=== PATIENT | female | born 1985 | race American Indian/Alaskan Native ===

== ENCOUNTER 2017-08-31 22:59 | Emergency (ER) | payer MEDICAID ==
[2017-08-31 23:11] VITALS: BP 193/92
--- NOTE | 2017-09-01 00:01 | EDM.PDOC ---
ED HPI GENERAL MEDICAL PROBLEM - General Chief Complaint: Gastrointestinal Problem Stated Complaint: SWALLOWED A NAIL Time Seen by Provider: 08/31/17 23:15 Source of Information: Reports: Patient, RN Notes Reviewed - History of Present Illness INITIAL COMMENTS - FREE TEXT/NARRATIVE: 32-year-old female comes in with concern of swallowing a small nail. It sounds like she was hanging some photos or something of that nature pounding small nail central wall. A she had 3 small meals in her mouth. She felt one slip and had sensation that she may have swallowed one of those nails. She states she leaned forward and immediately spit what she thought was the 2 remaining nails out of her mouth. She then did have some burning type discomfort of her anterior chest which has resolved. At this time on arrival to the ED she is not having throat neck chest or abdominal discomfort. She is not spit or vomited any blood. There has been no difficulty breathing. Epigastric Pain Score (Numeric/FACES): 4 - Related Data Allergies Allergy/AdvReac Type Severity Reaction Status Date / Time cephalexin monohydrate Allergy Abdominal Verified 08/31/17 23:08 [From Keflex] Pain Home Meds: Home Meds Vit No.130/Iron/FA [ Tablet] 1 each PO DAILY 05/30/15 [History] Ibuprofen 1 tab PO Q6H PRN 08/28/15 [History] Labetalol HCl [Labetalol] 1 tab PO BID 08/28/15 [History] Gabapentin 06/01/16 [History] oxyCODONE HCl/Acetaminophen [oxyCODONE-Acetaminophen 5-325] 1 tab PO Q4HR PRN [History] Past Medical History HEENT History: Reports: Impaired Vision Other HEENT History: Wears glasses Other Genitourinary History: LMP 08/21/15 [employer] History: Reports: Musculoskeletal History: Reports: Fracture Other Musculoskeletal History: 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 Psychiatric History: Reports: Anxiety - Infectious Disease History Infectious Disease History: Reports: Hepatitis C - Past Surgical History HEENT Surgical History: Reports: Tonsillectomy GI Surgical History: Reports: Cholecystectomy Other Female Surgeries/Procedures: vaginal cervical leep treatment Musculoskeletal Surgical History: Reports: Arthroscopic Knee Social & Family History - Family History Family Medical History: Noncontributory - Tobacco Use Smoking Status *Q: Never Smoker Second Hand Smoke Exposure: Yes - Alcohol Use Days Per Week of Alcohol Use: 0 - Recreational Drug Use Recreational Drug Use: No Drug Use in Last 12 Months: Yes Recreational Drug Type: Reports: Marijuana/Hashish Recreational Drug Use Frequency: Socially ED ROS GENERAL - Review of Systems Review Of Systems: See Below HEENT: Reports: Throat Pain (Gone) Respiratory: Denies: Shortness of Breath, Pleuritic Chest Pain Cardiovascular: Reports: Chest Pain (Gone) GI/Abdominal: Denies: Abdominal Pain, Nausea, Vomiting Musculoskeletal: Reports: No Symptoms Skin: Reports: No Symptoms Neurological: Reports: No Symptoms ED EXAM, GI/ABD - Physical Exam Exam: See Below General Appearance: Alert, No Apparent Distress Throat/Mouth: Normal Inspection, Normal Oropharynx Head: Atraumatic Neck: Supple Respiratory/Chest: No Respiratory Distress, Lungs Clear, Normal Breath Sounds. No: Rhonchi, Wheezing Cardiovascular: Regular Rate, Rhythm Extremities: Normal Inspection Neurological: Alert, Oriented, No Motor/Sensory Deficits Skin Exam: Warm, Dry, Normal Color Course - Vital Signs Last Recorded V/S: Last Vital Signs Temp 97.8 F 08/31/17 23:08 Pulse 78 08/31/17 23:08 Resp 18 08/31/17 23:08 BP 193/92 H 08/31/17 23:08 Pulse Ox 100 08/31/17 23:08 - Orders/Labs/Meds Orders: Active Orders 24 hr Category Date Time Status Abdomen 1V Upright [CR] Stat Exams 08/31/17 23:17 Taken Chest 1V Frontal [CR] Stat Exams 08/31/17 23:17 Taken - Re-Assessments/Exams Free Text/Narrative Re-Assessment/Exam: 09/01/17 02:17. X-rays of soft tissue neck, chest abdomen do not show any sign or evidence of a nail which would be expected to show quite readily. Are surgical clips of prior gallbladder and tubal ligation visible. Patient is relieved to know that she actually did not swallow a nail. She continued to be asymptomatic while here in the ED. Discharge instructions as documented. Departure - Departure Time of Disposition: 23:57 Disposition: Home, Self-Care 01 Condition: Fair Clinical Impression: Atypical chest pain - Discharge Information Referrals: Ibis Hilton MD [Primary Care Provider] - Forms: ED Department Discharge Additional Instructions: We have x-rayed from your throat clear down to your lower abdomen and pelvis. There is no evidence of nail or other foreign body ingested. Follow-up clinic as needed, return to ED if symptoms worsening in any way. - My Orders Last 24 Hours: My Active Orders 08/31/17 23:17 Abdomen 1V Upright [CR] Stat Chest 1V Frontal [CR] Stat - Assessment/Plan Last 24 Hours: My Active Orders 08/31/17 23:17 Abdomen 1V Upright [CR] Stat Chest 1V Frontal [CR] Stat
--- NOTE | 2017-09-01 07:28 | CR ---
Soft tissue neck: Single AP view of the neck was obtained. No opaque foreign object is seen. Soft tissues appear within normal limits. Underlying bony structures also appear within normal limits. Impression: 1. No abnormality is seen on AP soft tissue neck exam. Diagnostic code #1
--- NOTE | 2017-09-01 07:28 | CR ---
Abdomen: Supine view of the abdomen was obtained. Comparison: No previous study. Mild scoliosis is noted. Surgical clips are seen from prior cholecystectomy as well as several surgical clips within the pelvis. Bowel gas pattern is normal. No opaque foreign object is seen. Impression: 1. Incidental findings. Diagnostic code #2
--- NOTE | 2017-09-01 07:28 | CR ---
Chest: Frontal view of the chest was obtained. Comparison: No previous study. Poor inspiratory effort is seen. Within this limitation, lungs are felt to be clear. Heart size is normal. Mediastinum is within normal limits. Bony structures are grossly intact. No opaque foreign object is seen. Impression: 1. Limited inspiratory effort. Nothing acute is appreciated on frontal chest x-ray. Diagnostic code #2
== END 2017-09-01 00:05 | disposition home or self-care (01) ==
LOC: JD.ED 22:59
DX: R07.89 Other chest pain (principal); Z88.1 Allergy status to other antibiotic agents; Z77.22 Contact with and (suspected) exposure to environmental tobacco smoke (acute) (chronic)
CPT/HCPCS: 70360; 70360-26; 71010; 71010-26; 74000; 74000-26; 99282; 99283